=== PATIENT | female | born 1970 | race African-American/Black ===

== ENCOUNTER → 2016-11-05 | Outpatient (CLI) | payer MEDICARE, OTHER ==
[~2016-11-05] MED LIST: AMLO5TAB2 PO; BACL10TA PO; HYDR-3535 PO; LISI-515 PO; MACR100C2 PO; ONDA1TAB17 PO; OXYB5TAB10 PO; PANT20TA2 PO; PHEN0.4T PO; TOPR100T PO; TRAN1TAB22 PO; TRAZ50TA12 PO
[2016-11-05 11:14] LABS: AUTOMATED NEUTROPHIL # 3.6 TH/MM3 (1.8-7.7); BASOPHIL % 0.5 % (0.0-2.0); EOSINOPHIL # 0.1 TH/MM3 (0-0.4); EOSINOPHIL % 1.4 % (0.0-4.0); HEMATOCRIT 41.2 % (35.0-46.0); HEMO FLAGS DIFF FINAL; MEAN CELL VOLUME 81.9 FL (80.0-100.0); MEAN CORPUSCULAR HEMOGLOBIN 27.4 PG (27.0-34.0); MEAN CORPUSCULAR HGB CONC 33.5 % (32.0-36.0); MONO % 11.2 % (0.0-8.0); NEUT % 46.9 % (16.0-70.0); PLATELET COUNT 403 TH/MM3 (150-450); RED BLOOD COUNT 5.03 MIL/MM3 (4.00-5.30); RED CELL DISTRIBUTION WIDTH 13.2 % (11.6-17.2); WHITE BLOOD COUNT 7.6 TH/MM3 (4.0-11.0)
[2016-11-05 11:45] LABS: ANION GAP 5 MEQ/L (5-15); AST (GOT) 11 U/L (15-37); BICARBONATE 31.1 MEQ/L (21.0-32.0); BLOOD UREA NITROGEN 9 MG/DL (7-18); CHLORIDE 100 MEQ/L (98-107); GLOMERULAR FILTRATION RATE 101 ML/MIN (>89); GLUCOSE,FASTING 89 MG/DL (74-99); POTASSIUM 3.9 MEQ/L (3.5-5.1); SODIUM (NA) 136 MEQ/L (136-145)
[2016-11-05 11:51] LABS: ALKALINE PHOSPHATASE 77 U/L (45-117); ALT (GPT) 14 U/L (10-53); TOTAL BILIRUBIN ADULT 0.5 MG/DL (0.2-1.0)
[2016-11-05 11:53] LABS: BHCG SCREEN QUALITATIVE LESS THAN 1 MIU/ML (0-5)
[2016-11-05 12:19] LABS: BACTERIA, URINE OCC /hpf; BLOOD, URINE NEG (NEG); COMMENT (UR) CULT NOT INDICATED; CULTURE IF INDICATED CULT NOT INDICATED; GLUCOSE,URINE NEG (NEG); KETONE, URINE NEG (NEG); MUCUS URINE FEW /lpf (OCC); NITRITE,URINE NEG (NEG); PH, URINE 7.5 (5.0-8.5); SQUAMOUS EPITHELIAL CELL URINE 18 /hpf (0-5); URINE COLOR YELLOW (YELLW/STRAW)
== END ==
LOC: CPRE 10:41
PROVIDERS: ATTEND Obstetrics & Gynecology Gynecology
DX: Z01.812 Encounter for preprocedural laboratory examination (principal); D25.1 Intramural leiomyoma of uterus
CPT/HCPCS: 36415; 80053; 81001; 84703; 85025

== ENCOUNTER → 2016-11-20 | Day surgery (SDC) | payer MEDICARE, OTHER ==
--- NOTE | 2016-11-05 14:04 | MH ---
cc: LAURO KISER MD DATE OF ADMISSION: 11/20/2016 DATE OF : 1970 Scheduled admission on 01/20 for hysteroscopy, D&C. HISTORY OF PRESENT ILLNESS The patient is a 46-year-old black female, 4, para 3 with issues of BMI above 45, lupus, hepatitis C, dysfunctional bleeding after prior endometrial ablation. Also has chronic stress incontinence issues, hypertension, neuropathy. Patient has had persistent bleeding despite endometrial ablation. She has had an ultrasound which shows endometrial stripe of 6 mm but she is at increased risk for neoplasia secondary to her elevated body mass. Patient is going to undergo hysteroscopy, D&C to assess the endometrial cavity. PAST MEDICAL HISTORY 1. Hypertension. 2. BMI above 45. 3. Neuropathy. 4. Impaired glucose metabolism. 5. IBS. 6. GERD. 7. Chronic constipation. 8. Hepatitis C. MEDICATIONS 1. ___ 650 mg two tablets t.i.d. 2. Amlodipine 5 mg b.i.d. 3. Baclofen 10 mg q.h.s. 4. Hydrocodone 10 mg q.4 hours p.r.n. 5. Lisinopril 20 mg daily. 6. Metoprolol 100 mg daily. 7. Trazodone 50 mg q.h.s. ALLERGIES DARVOCET. FAMILY HISTORY Noncontributory. PAST SURGICAL HISTORY Endometrial ablation, laparoscopy. OBSTETRICAL HISTORY Four vaginal deliveries. SOCIAL HISTORY She does not smoke, use alcohol or drugs. REVIEW OF SYSTEMS As above. No chest pain, orthopnea, PND. Remainder of 14-point review negative. PHYSICAL EXAMINATION VITAL SIGNS: She is afebrile. Vital signs are stable. Blood pressure is 120/70, height 5 feet 10 inches, weight 386, BMI is 55. GENERAL: Patient is alert and oriented, in no acute distress. No sign of cognitive dysfunction or depression. HEENT: Within normal limits. NECK: Supple. No JVD. CHEST: Clear. HEART: Regular rate and rhythm. ABDOMEN: Soft, nontender. No hepatosplenomegaly. No CVA tenderness. PELVIC: Will be detailed under anesthesia. EXTREMITIES: Normal skin without rashes. NEURO: Nonfocal. No DVT signs. ASSESSMENT The patient with dysfunctional bleeding following prior endometrial ablation. The patient is at increased risk for neoplasia secondary to BMI above 50. At this point we discussed options for management and treatment. She is aware this is a diagnostic procedure and she may need referral for definitive surgery at another center. She is aware of the risks, benefits and alternatives to planned procedure including damage to surrounding organs, bleeding, infection and need for subsequent procedure. At this point we anticipate outpatient procedure. We will use DVT prophylaxis with sequential compression device and antibiotic prophylaxis Ancef 2 grams IV. MD BRENDA Kent/TLRamon /10:31 AM /11:45 AM
[~2016-11-20] VITALS: Ht 180.3 cm; Wt 17.4 kg
[~2016-11-20] MED LIST changes: +*morphine SULFATE 8 MG/ML PERIprocedure ONLY ONE; +CHLORHEXIDINE GLUCONATE 2 % 1 PACK (2 CLOTHS) TOPICAL PRN; +DEXAMETHASONE SOD PHOS 4 MG/ML VIAL ONE; +DO NOT ADM ANY ANTICOAGULANT DRUGS PRN; +FAMOTIDINE 20 MG/2 ML VIAL ONE; +INSULIN HUMAN REGULAR 1,000 UNITS/10 ML VIAL SQ PRN; +KETOROLAC TROMETHAMINE 30 MG/ML (IVP) VIAL IV PUSH PRN; +KETOROLAC TROMETHAMINE 60 MG/2 ML (IM) VIAL IM ONE; +KETOROLAC TROMETHAMINE 60 MG/2 ML (IM) VIAL IM PRN; +LACTATED RINGER'S 1000 ML INJ 1,000 ML IV ONE; +LACTATED RINGER'S 1000 ML IV PRN; +METOCLOPRAMIDE HCL 10 MG/2 ML VIAL ONE; +METOPROLOL TARTRATE 25 MG TAB PO PRN; +MIDAZOLAM HCL 2 MG/2 ML VIAL ONE; +ONDANSETRON HCL 4 MG/2 ML VIAL IV PUSH PRN; +POVIDONE IODINE 5% (ANTISEPSIS KIT) 4 APPLICATIONS EACH NARE PRN; +PROPOFOL 200 MG/20 ML AMP IV ONE; +SODIUM CHLORID 0.9% 500 ML IV PRN; +ceFAZolin 2 GM PREMIX 50 ML IV SCH; +traMADol HCL 50 MG TAB PO PRN
[2016-11-20 09:45] VITALS: BP 133/83; PULSE 59; RESP 18; TEMP 97.4; O2SAT 99
--- NOTE | 2016-11-22 21:25 | MP ---
cc: LAURO KISER MD, JESSE S. MD DATE OF SURGERY 11/20/2016 PREOPERATIVE DIAGNOSIS Dysfunctional bleeding unresponsive to medicinal therapy, status post prior endometrial ablation. POSTOPERATIVE DIAGNOSIS Dysfunctional bleeding unresponsive to medicinal therapy, status post prior endometrial ablation, with intrauterine adhesions. PROCEDURE Hysteroscopy with lysis of adhesions. SURGEON Dr. Kiser ANESTHESIA Laryngeal mask. GRANITE [employer] staff x1. FLUIDS Crystalloid. BLOOD LOSS 10 mL URINE OUTPUT 100 mL prior to case FINDINGS External genitalia normal. Pop Q score is Aa is -1, Ap is -1. Point C is -6. Total vaginal length is 10. Genital hiatus is 8. Perineal body is 5. Initial sounding of the uterus shows approximately 3 cm with lysis of adhesions. Under hysteroscopic guidance we were able to get to 8 cm of sounding of the uterus. Thin, atrophic endometrium. Prep small polyp on one left portion of the endometrial cavity. The endometrial cavity otherwise unremarkable. Uterus approximately 15 weeks size consistent with fibroids. SPECIMENS Endometrial curettage. COMPLICATIONS None. DISPOSITION To the recovery room stable. COUNTS Needle and sponge correct. DRAINS None. DEEP VENOUS THROMBOSIS PROPHYLAXIS Sequential compression device. ANTIBIOTIC COVERAGE 2 grams of Ancef. Time-out procedure per protocol. SUMMARY AND INDICATION FOR PROCEDURE The patient with dysfunctional bleeding unresponsive to medicinal therapy, status post prior endometrial ablation. She has had ultrasound that shows uterine fibroids and a marginally thickened endometrial stripe but with her BMI of approximately 50 I felt that she was at increased risk for hyperplasia and needed a hysteroscopy for further evaluation. The patient was taken to the operating theater and prepped and draped in fashion appropriate for the planned procedure. She was in dorsal lithotomy position with careful attention paid to position of legs in stirrups to avoid undue stress to sensitive neurovascular structures. Above findings noted. Neurovascular integrity documented. Bladder was drained. Cervix was identified and grasped with a tenaculum. Initial sounding the uterus only showed 3-4 cm of depth. We placed hysteroscope, a 5 mm scope under direct visualization. Noted the adhesions consistent with prior endometrial ablation and these were taken down with mechanical technique without any electricity or energy. We were then able to get 8 cm of cavity depth without any sign of perforation, very thin endometrium. There was some fluid in the cavity that was consistent with old blood. Curettage was obtained without complication. Procedure was concluded. Hemostasis was assured. The patient reversed from anesthesia, taken to recover room in stable condition. Should the patient have issues with continued bleeding or has any sign of any neoplasia on the pathology, she would be best served with a robotic case. She has significant central obesity which would make a laparoscopic procedure straight stick very difficult and open procedure quite complicated. I think robotics would be her best option if she needs to proceed with hysterectomy. MD BRENDA Kent/KK /8:57 AM /9:00 PM
== END | disposition home or self-care (01) ==
LOC: HSDC 06:18
PROVIDERS: ATTEND Obstetrics & Gynecology Gynecology
DX: N85.6 Intrauterine synechiae (principal); N84.0 Polyp of corpus uteri; D25.1 Intramural leiomyoma of uterus; N93.8 Other specified abnormal uterine and vaginal bleeding; B19.20 Unspecified viral hepatitis C without hepatic coma; M32.9 Systemic lupus erythematosus, unspecified; N39.3 Stress incontinence (female) (male); I10 Essential (primary) hypertension; K58.9 Irritable bowel syndrome, unspecified; K21.9 Gastro-esophageal reflux disease without esophagitis; K59.09 Other constipation; Z87.891 Personal history of nicotine dependence; Z87.898 Personal history of other specified conditions
CPT/HCPCS: 00952; 58559; 88305; J0690; J1100; J1885; J2250; J2270; J2765; J3010; J7120

== ENCOUNTER 2016-12-19 18:40 | Emergency (ER) | payer MEDICARE, OTHER ==
[~2016-12-19 18:40] MED LIST changes: -*morphine SULFATE 8 MG/ML PERIprocedure ONLY ONE; -CHLORHEXIDINE GLUCONATE 2 % 1 PACK (2 CLOTHS) TOPICAL PRN; -DEXAMETHASONE SOD PHOS 4 MG/ML VIAL ONE; -DO NOT ADM ANY ANTICOAGULANT DRUGS PRN; -FAMOTIDINE 20 MG/2 ML VIAL ONE; -INSULIN HUMAN REGULAR 1,000 UNITS/10 ML VIAL SQ PRN; -KETOROLAC TROMETHAMINE 30 MG/ML (IVP) VIAL IV PUSH PRN; -KETOROLAC TROMETHAMINE 60 MG/2 ML (IM) VIAL IM ONE; -KETOROLAC TROMETHAMINE 60 MG/2 ML (IM) VIAL IM PRN; -LACTATED RINGER'S 1000 ML INJ 1,000 ML IV ONE; -LACTATED RINGER'S 1000 ML IV PRN; -MACR100C2 PO; -METOCLOPRAMIDE HCL 10 MG/2 ML VIAL ONE; -METOPROLOL TARTRATE 25 MG TAB PO PRN; -MIDAZOLAM HCL 2 MG/2 ML VIAL ONE; -ONDANSETRON HCL 4 MG/2 ML VIAL IV PUSH PRN; -PHEN0.4T PO; -POVIDONE IODINE 5% (ANTISEPSIS KIT) 4 APPLICATIONS EACH NARE PRN; -PROPOFOL 200 MG/20 ML AMP IV ONE; -SODIUM CHLORID 0.9% 500 ML IV PRN; -TRAN1TAB22 PO; -ceFAZolin 2 GM PREMIX 50 ML IV SCH; -traMADol HCL 50 MG TAB PO PRN
[2016-12-19 18:43] VITALS: BP 174/84; PULSE 100; RESP 20; TEMP 99; O2SAT 97
[2016-12-19 20:36] VITALS: BP 134/84; PULSE 87; RESP 19; O2SAT 99
[2016-12-19 21:38] LABS: AUTOMATED NEUTROPHIL # 5.2 TH/MM3 (1.8-7.7); BASOPHIL # 0.1 TH/MM3 (0-0.2); EOSINOPHIL # 0.1 TH/MM3 (0-0.4); EOSINOPHIL % 0.8 % (0.0-4.0); HEMATOCRIT 40.8 % (35.0-46.0); HEMO FLAGS DIFF FINAL; LYMPH % 42.4 % (9.0-44.0); LYMPHOCYTE # 4.8 TH/MM3 (1.0-4.8); MEAN CELL VOLUME 81.8 FL (80.0-100.0); MEAN CORPUSCULAR HEMOGLOBIN 26.8 PG (27.0-34.0); MEAN CORPUSCULAR HGB CONC 32.8 % (32.0-36.0); MONO % 9.7 % (0.0-8.0); NEUT % 46.1 % (16.0-70.0); PLATELET COUNT 443 TH/MM3 (150-450); RED BLOOD COUNT 4.99 MIL/MM3 (4.00-5.30); RED CELL DISTRIBUTION WIDTH 13.4 % (11.6-17.2); WHITE BLOOD COUNT 11.3 TH/MM3 (4.0-11.0)
[2016-12-19 21:41] LABS: BACTERIA, URINE FEW /hpf; BLOOD, URINE NEG (NEG); GLUCOSE,URINE NEG (NEG); HYALINE CAST, URINE 5 /lpf (RARE); KETONE, URINE TRACE mg/dL (NEG); MUCUS URINE MOD /lpf (OCC); NITRITE,URINE NEG (NEG); PH, URINE 5.5 (5.0-8.5); SQUAMOUS EPITHELIAL CELL URINE 18 /hpf (0-5); URINE COLOR YELLOW (YELLW/STRAW)
[2016-12-19 21:43] LABS: COMMENT (UR) CULTURE INDICATED; CULTURE IF INDICATED CULTURE INDICATED
[2016-12-19 21:47] LABS: ALT (GPT) 17 U/L (10-53); ANION GAP 9 MEQ/L (5-15); AST (GOT) 9 U/L (15-37); BICARBONATE 28.4 MEQ/L (21.0-32.0); BLOOD UREA NITROGEN 13 MG/DL (7-18); CHLORIDE 101 MEQ/L (98-107); GLOMERULAR FILTRATION RATE 81 ML/MIN (>89); POTASSIUM 3.7 MEQ/L (3.5-5.1); SODIUM (NA) 138 MEQ/L (136-145)
[2016-12-19 21:50] LABS: ALKALINE PHOSPHATASE 78 U/L (45-117); TOTAL BILIRUBIN ADULT 0.7 MG/DL (0.2-1.0)
--- NOTE | 2016-12-19 21:56 | PD ---
HPI Chief Complaint: Welder Oxyhydrogen Problem/Complaint Time Seen by Provider: 20:25 Travel History International Travel<30 days: No Contact w/Intl Traveler<30days: No Traveled to known affect area: No History of Present Illness HPI 46-year-old female presents to the ED for evaluation of 2 day history of lower abdominal cramping, radiating to the legs. She also endorses mild vaginal spotting. She denies fever, chills, nausea, vomiting, dysuria, hematuria, vaginal discharge. She states that she had an ablation with the account executive key accounts approximately 3 months ago. PFSH Past Medical History Arthritis: Yes Autoimmune Disease: Yes (LUPUS) Anxiety: Yes Depression: Yes Cancer: No Cardiovascular Problems: Yes (HEART MURMUR) Diabetes: No Diminished Hearing: No Endocrine: No Gastrointestinal Disorders: Yes (HEMORRHOIDS, gerd) Genitourinary: No Hepatitis: Yes (C) Hiatal Hernia: No Hypertension: Yes Immune Disorder: Yes (LUPUS) Musculoskeletal: Yes (NERVE IMPINGMENT LOWER BACK) Neurologic: No Psychiatric: No Reproductive: Yes (FIBROIDS) Respiratory: No Immunizations Current: No Sleep Apnea: Yes Thyroid Disease: No ?: Not Menopausal: Yes : 3 Para: 3 Ovarian Cysts: Yes Dilation and Curettage (D&C): Yes (PT STS THEY BURNED AWAY UTERINE LINING; NO LONGER HAS MENSTRUATION; 2006) Tubal Ligation: Yes Past Surgical History Abdominal Surgery: No AICD: No Cardiac Surgery: No Ear Surgery: No Endocrine Surgery: No Eye Surgery: No Gynecologic Surgery: Yes (UTERINE ABLATION) Hysterectomy: Yes (abrasion of uterus after 3rd child) Joint Replacement: No Oral Surgery: No Pacemaker: No Thoracic Surgery: No Other Surgery: Yes (BENIGN TUMOR REMOVED RIGHT SHOULDER) Social History Alcohol Use: No Tobacco Use: No Substance Use: No Allergies-Medications (Allergen,Severity, Reaction): Coded Allergies: acetaminophen (Unverified Allergy, Severe, Shortness of Breath, 12/19/16) propoxyphene (Unverified Allergy, Severe, Shortness of Breath, 12/19/16) Reported Meds & Prescriptions Reported Meds & Active Scripts Active Macrobid (Nitrofurantoin Monoh/Nitrofur Macro) 100 Mg Cap 100 Mg PO BID 7 Days Pyridium (Phenazopyridine HCl) 100 Mg Tab 100 Mg PO Q8H PRN Reported Ditropan (Oxybutynin Chloride) 5 Mg Tab 5 Mg PO TID Amlodipine (Amlodipine Besylate) 5 Mg Tab 5 Mg PO DAILY Baclofen 10 Mg Tab 10 Mg PO Q8HR PRN Lortab (Hydrocodone-Acetaminophen) 10-325 Mg Tab 1 Tab PO Q4H PRN Lisinopril 20 Mg Tab 20 Mg PO DAILY Pantoprazole (Pantoprazole Sodium) 20 Mg Tab 20 Mg PO DAILY Toprol XL (Metoprolol Succinate) 100 Mg Tab 100 Mg PO DAILY Trazodone (Trazodone HCl) 50 Mg Tab 50 Mg PO HS Review of Systems Except as stated in HPI: all other systems reviewed are Neg Physical Exam Narrative GENERAL: Well-nourished, well-developed obese black female in no acute distress. SKIN: Focused skin assessment warm/dry. HEAD: Normocephalic. EYES: No scleral icterus. No injection or drainage. NECK: Supple, trachea midline. No JVD or lymphadenopathy. CARDIOVASCULAR: Regular rate and rhythm without murmurs, gallops, or rubs. RESPIRATORY: Breath sounds equal bilaterally. No accessory muscle use. GASTROINTESTINAL: Abdomen protuberant, soft, non-tender, nondistended. Active bowel sounds. MUSCULOSKELETAL: No cyanosis, or edema. BACK: Nontender without obvious deformity. No CVA tenderness. Data Data Last Documented VS Vital Signs Date Time Temp Pulse Resp B/P (MAP) Pulse Ox O2 Delivery O2 Flow Rate FiO2 12/19/16 20:36 87 19 134/84 (101) 99 Room Air 12/19/16 18:43 99.0 Orders Orders Complete Blood Count With Diff (12/19/16 20:32) Comprehensive Metabolic Panel (12/19/16 20:32) Urinalysis - C+S If Indicated (12/19/16 20:32) Ed Urine Pregnancytest Poc (12/19/16 20:32) Urine Culture (12/19/16 20:35) Tramadol (Ultram) (12/19/16 22:00) Phenazopyridine (Pyridium) (12/19/16 22:00) Nitrofurantoin Monohyd Macrocr (Macrobid (12/19/16 22:00) Labs Laboratory Tests Test 12/19/16 20:35 White Blood Count 11.3 TH/MM3 Red Blood Count 4.99 MIL/MM3 Hemoglobin 13.4 GM/DL Hematocrit 40.8 % Mean Corpuscular Volume 81.8 FL Mean Corpuscular Hemoglobin 26.8 PG Mean Corpuscular Hemoglobin Concent 32.8 % Red Cell Distribution Width 13.4 % Platelet Count 443 TH/MM3 Mean Platelet Volume 7.8 FL Neutrophils (%) (Auto) 46.1 % Lymphocytes (%) (Auto) 42.4 % Monocytes (%) (Auto) 9.7 % Eosinophils (%) (Auto) 0.8 % Basophils (%) (Auto) 1.0 % Neutrophils # (Auto) 5.2 TH/MM3 Lymphocytes # (Auto) 4.8 TH/MM3 Monocytes # (Auto) 1.1 TH/MM3 Eosinophils # (Auto) 0.1 TH/MM3 Basophils # (Auto) 0.1 TH/MM3 CBC Comment DIFF FINAL Differential Comment Urine Color YELLOW Urine Turbidity CLOUDY Urine pH 5.5 Urine Specific [place] 1.030 Urine Protein 30 mg/dL Urine Glucose (UA) NEG mg/dL Urine Ketones TRACE mg/dL Urine Occult Blood NEG Urine Nitrite NEG Urine Bilirubin NEG Urine Urobilinogen 2.0 MG/DL Urine Leukocyte Esterase MOD Urine RBC 10 /hpf Urine WBC 20 /hpf Urine Squamous Epithelial Cells 18 /hpf Urine Bacteria FEW /hpf Urine Hyaline Casts 5 /lpf Urine Mucus MOD /lpf Microscopic Urinalysis Comment CULTURE INDICATED Blood Urea Nitrogen 13 MG/DL Creatinine 0.91 MG/DL Random Glucose 96 MG/DL Total Protein 8.1 GM/DL Albumin 3.7 GM/DL Calcium Level 9.0 MG/DL Alkaline Phosphatase 78 U/L Aspartate Amino Transf (AST/SGOT) 9 U/L Alanine Aminotransferase (ALT/SGPT) 17 U/L Total Bilirubin 0.7 MG/DL Sodium Level 138 MEQ/L Potassium Level 3.7 MEQ/L Chloride Level 101 MEQ/L Carbon Dioxide Level 28.4 MEQ/L Anion Gap 9 MEQ/L Estimat Glomerular Filtration Rate 81 ML/MIN MDM Medical Decision Making Medical Screen Exam Complete: Yes Emergency Medical Condition: Yes Differential Diagnosis UTI versus anemia versus abnormal uterine bleeding versus other Narrative Course 46-year-old female presents to the ED for evaluation of 2 day history of lower abdominal cramping, radiating to the legs. She also endorses mild vaginal spotting. She denies fever, chills, nausea, vomiting, dysuria, hematuria, vaginal discharge. She states that she had an ablation with the account executive key accounts approximately 3 months ago. Vitals reviewed. Patient is tachycardic on presentation but this resolves in the exam room. Physical exam reveals mild suprapubic tenderness but is otherwise unremarkable. Mild leukocytosis of 11.3. UA cloudy, moderate leukocyte esterase, 20 WBCs, few bacteria, culture pending. I discussed the results of workup with the patient. She requested dose of pain medications. She was administered tramadol, Pyridium and first dose of Macrobid in the ED. She is prescribed Macrobid 100 mg twice a day 7 days and a few doses of Pyridium. We discussed reasons to return to the ED. She is stable and discharged home. Diagnosis Primary Impression: Acute cystitis Qualified Codes: N30.00 - Acute cystitis without hematuria Referrals: Primary Care Physician Patient Instructions: General Instructions, Urinary Tract Infection in Women ( ED) Additional Instructions: Rest, hydrate. Take all antibiotics as prescribed, even if your symptoms resolve. Pyridium is known to turn your urine bright orange. This is an expected, harmless side effect. Return to the ED for worsening symptoms. Otherwise follow-up with the primary care provider. Return to the ED for any urgent or emergent medical condition. Med/Other Pt SpecificInfo: Prescription(s) given Scripts Nitrofurantoin Monohydrate Macrocrystals (Macrobid) 100 Mg Cap 100 MG PO BID for Infection for 7 Days, #14 CAP 0 Refills Prov: Juno Rosenberg MD 12/19/16 Phenazopyridine (Pyridium) 100 Mg Tab 100 MG PO Q8H Y for DYSURIA, #5 TAB 0 Refills Prov: Juno Rosenberg MD 12/19/16 Disposition: 01 DISCHARGE HOME Condition: Stable Bina Damian Dec 19, 2016 21:55
[2016-12-19] MEDS ORDERED: PHEN0.4T PO ×2 (21:59→22:01)
[2016-12-19] MEDS ORDERED: MACR100C2 PO ×2 (21:59→22:01)
[2016-12-19] MEDS ORDERED: PHENAZOPYRIDINE HCL 200 MG TAB PO ONE (22:00)
[2016-12-19] MEDS ORDERED: SULFAMETHOXAZOLE-TRIMETHOPRIM DS 800-160 MG TAB PO ONE (22:00)
[2016-12-19] MEDS ORDERED: traMADol HCL 50 MG TAB PO ONE (22:00)
[2016-12-19] MEDS ORDERED: NITROFURANTOIN MONOHYD MACROCR 100 MG CAP PO ONE (22:00)
== END 2016-12-19 22:34 | disposition home or self-care (01) ==
LOC: NEPC 18:40
DX: N30.00 Acute cystitis without hematuria (principal)
CPT/HCPCS: 80053; 81001; 84703; 85025; 87086; 99283

== ENCOUNTER 2017-05-12 09:37 | Emergency (ER) | payer MEDICARE, OTHER ==
[~2017-05-12] VITALS: Ht 180.3 cm; Wt 180.0 kg
[~2017-05-12 09:37] MED LIST changes: +MACR100C2 PO; -ONDA1TAB17 PO; -OXYB5TAB10 PO; +OXYB5TAB8 PO; +PHEN0.4T PO
[2017-05-12 09:39] VITALS: BP 142/88; PULSE 95; RESP 16; TEMP 97.9; O2SAT 97
[2017-05-12] MEDS ORDERED: HYDR25TA5 PO (10:16)
[2017-05-12] MEDS ORDERED: OXYC1TAB36 PO (10:16)
[2017-05-12] MEDS ORDERED: LORA2TAB7 PO (10:16)
[2017-05-12] MEDS ORDERED: ROPI2TAB PO (10:16)
[2017-05-12] MEDS ORDERED: METO100T PO (10:16)
[2017-05-12] MEDS ORDERED: TEMA30CA PO (10:16)
--- NOTE | 2017-05-12 10:47 | PD ---
HPI Chief Complaint: Cold / Flu Symptoms Time Seen by Provider: 10:13 Travel History International Travel<30 days: No Contact w/Intl Traveler<30days: No Traveled to known affect area: No History of Present Illness HPI This is a 46 year old female history of hypertension, hepatitis C, presents for evaluation. For the past 2 days she has had sore throat, myalgias, chills and cough. Cough is nonproductive. Pain is mild, aggravated by swallowing with no relieving factors. Denies any abdominal pain, nausea or vomiting, rash or recent travel. No other complaints at this time. PFSH Past Medical History Arthritis: Yes Autoimmune Disease: Yes (LUPUS) Anxiety: Yes Depression: Yes Cancer: No Cardiovascular Problems: Yes Diabetes: No Diminished Hearing: No Endocrine: No Gastrointestinal Disorders: Yes (HEMORRHOIDS, gerd) Genitourinary: No Hepatitis: Yes (C) Hiatal Hernia: No Hypertension: Yes Immune Disorder: Yes (LUPUS) Musculoskeletal: Yes (NERVE IMPINGMENT LOWER BACK) Neurologic: No Psychiatric: No Reproductive: Yes (FIBROIDS) Respiratory: No Immunizations Current: No Sleep Apnea: Yes Thyroid Disease: No ?: Not LMP: 05/08/17 Menopausal: Yes : 3 Para: 3 Ovarian Cysts: Yes Dilation and Curettage (D&C): Yes (PT STS THEY BURNED AWAY UTERINE LINING; NO LONGER HAS MENSTRUATION; 2006) Tubal Ligation: Yes Past Surgical History Abdominal Surgery: No AICD: No Cardiac Surgery: No Ear Surgery: No Endocrine Surgery: No Eye Surgery: No Gynecologic Surgery: Yes (UTERINE ABLATION) Hysterectomy: Yes (abrasion of uterus after 3rd child) Joint Replacement: No Oral Surgery: No Pacemaker: No Thoracic Surgery: No Other Surgery: Yes (BENIGN TUMOR REMOVED RIGHT SHOULDER) Social History Alcohol Use: No Tobacco Use: No Substance Use: No Allergies-Medications (Allergen,Severity, Reaction): Coded Allergies: acetaminophen (Unverified Allergy, Severe, Shortness of Breath, 12/22/16) propoxyphene (Unverified Allergy, Severe, Shortness of Breath, 12/22/16) Reported Meds & Prescriptions Reported Meds & Active Scripts Active Tessalon Perles (Benzonatate) 100 Mg Cap 100 Mg PO TID PRN Reported Ropinirole 2 Mg Tab 2 Mg PO TID Metoprolol Tartrate 100 Mg Tab 100 Mg PO BID Lorazepam 2 Mg Tab 2 Mg PO TID Oxycodone-Acetaminophen 10-325 mg Tab 1 Tab PO Q6H PRN Temazepam 30 Mg Cap 30 Mg PO HS PRN Hydrochlorothiazide 25 Mg Tab 25 Mg PO DAILY Amlodipine (Amlodipine Besylate) 5 Mg Tab 5 Mg PO DAILY Lisinopril 20 Mg Tab 20 Mg PO DAILY Pantoprazole (Pantoprazole Sodium) 20 Mg Tab 20 Mg PO DAILY Toprol XL (Metoprolol Succinate) 100 Mg Tab 100 Mg PO DAILY Trazodone (Trazodone HCl) 50 Mg Tab 50 Mg PO HS Review of Systems Except as stated in HPI: all other systems reviewed are Neg Physical Exam Narrative GENERAL: Well-developed well-nourished female in no acute distress SKIN: Warm and dry. HEAD: Atraumatic. Normocephalic. EYES: Pupils equal and round. No scleral icterus. No injection or drainage. ENT: No nasal bleeding or discharge. Mucous membranes pink and moist. Mild oropharyngeal erythema without exudate. NECK: Trachea midline. No JVD. No lymphadenopathy. CARDIOVASCULAR: Regular rate and rhythm. No murmur appreciated. RESPIRATORY: No accessory muscle use. Clear to auscultation. Breath sounds equal bilaterally. No crackles no wheezing or rhonchi GASTROINTESTINAL: Abdomen soft, non-tender, nondistended. Hepatic and splenic margins not palpable. Data Data Last Documented VS Vital Signs Date Time Temp Pulse Resp B/P (MAP) Pulse Ox O2 Delivery O2 Flow Rate FiO2 05/12/17 09:39 97.9 95 16 142/88 (106) 97 Orders Orders Influenzae A/B Antigen (05/12/17 10:44) Group A Rapid Strep Screen (05/12/17 10:44) Strep Culture (Group A) (05/12/17 11:03) MDM Medical Decision Making Medical Screen Exam Complete: Yes Emergency Medical Condition: Yes Medical Record Reviewed: Yes Differential Diagnosis Pharyngitis, influenza, bronchitis, pneumonia, tonsillitis Narrative Course 46 year old female with 2 days of sore throat, cough, myalgias. She appears well. Rapid strep screen and influenza antigen test were performed and they are negative. She appears to have a viral respiratory infection. She is stable for discharge. Diagnosis Primary Impression: Upper respiratory infection Additional Instructions: Stay well-hydrated and well-nourished, get plenty of rest. Tylenol or Motrin for pain and fever per dosing instructions on the bottle. Follow-up with primary care physician as needed and return for any emergent medical conditions. Med/Other Pt SpecificInfo: Prescription(s) given Scripts Benzonatate (Tessalon Perles) 100 Mg Cap 100 MG PO TID Y for COUGH, #30 CAP 0 Refills Prov: Venancio Mclean MD 05/12/17 Disposition: 01 DISCHARGE HOME Condition: Stable Nhan Francois May 12, 2017 10:47
[2017-05-12] MEDS ORDERED: BENZ100 PO (11:24)
== END 2017-05-12 11:36 | disposition home or self-care (01) ==
LOC: NEPK 09:37
DX: J06.9 Acute upper respiratory infection, unspecified (principal); I10 Essential (primary) hypertension; M32.9 Systemic lupus erythematosus, unspecified; F41.9 Anxiety disorder, unspecified; F32.9 Major depressive disorder, single episode, unspecified; M19.90 Unspecified osteoarthritis, unspecified site; K21.9 Gastro-esophageal reflux disease without esophagitis; G47.30 Sleep apnea, unspecified; Z86.19 Personal history of other infectious and parasitic diseases
CPT/HCPCS: 87081; 87804; 87880; 99283